=== PATIENT | male | born 1955 | race Caucasian/White ===

== ENCOUNTER 2017-03-31 04:25 | Emergency (ER) | payer OTHER ==
[2017-03-31] MEDS ORDERED: Ibuprofen 800 MG TAB ONE (05:31)
[2017-03-31] MEDS ORDERED: HYDROcodone/Acetaminophen 10/325 mg Tablet ONE (05:31)
--- NOTE | 2017-03-31 07:07 | RAD ---
RIGHT WRIST 3 VIEWS: Date: 03/31/17 Although the findings are subtle, there does appear to be an impacted fracture of the distal radius. There may be a fracture line extending into the radiocarpal joint. The carpal bones themselves all appeared intact. IMPRESSION: Presumed fracture of the distal radius. Follow-up study is indicated. There is no displacement. POS: HOME
== END 2017-03-31 05:51 | disposition home or self-care (01) ==
LOC: BURERS 04:25
DX: S52.571A Other intraarticular fracture of lower end of right radius, initial encounter for closed fracture (principal); E78.5 Hyperlipidemia, unspecified; I10 Essential (primary) hypertension; J44.9 Chronic obstructive pulmonary disease, unspecified; F20.9 Schizophrenia, unspecified; F17.210 Nicotine dependence, cigarettes, uncomplicated; Z79.899 Other long term (current) drug therapy; W19.XXXA Unspecified fall, initial encounter
CPT/HCPCS: 29125

== ENCOUNTER 2018-07-24 03:46 | Emergency (ER) | payer OTHER ==
[2018-07-24] MEDS ORDERED: Aspirin Chewable 81 MG TAB ONE ×2 (03:57→03:58)
[2018-07-24 04:31] LABS: Bilirubin Negative (Negative); Clarity Clear (Clear); Glucose, Urine (Dipstick) 100 mg/dL (Negative); Leukocyte Negative (Negative); Nitrite Negative (Negative); Protein, Urine (Dipstick) Negative (Neg-Trace); Specific Gravity, Urine 1.004 (1.002-1.036); Urobilinogen 0.2 mg/dL (0.2-1.0)
[2018-07-24 04:32] LABS: Blood, Urine Trace (Negative)
[2018-07-24 04:34] LABS: Bacteria/HPF None Seen HPF (None Seen); RBC/HPF 0-3 HPF (0-3); Squamous Epithelial 0-3 HPF (0-3); WBC/HPF None Seen HPF (0-3)
[2018-07-24 04:35] LABS: ALT (SGPT) 16 U/L (8-55); AST (SGOT) 17 U/L (5-34); Albumin 3.8 g/dL (3.4-4.8); Alkaline Phosphatase 58 U/L (40-150); Anion Gap 16 mmol/L (10-20); BUN (Urea Nitrogen) 13 mg/dL (8.4-25.7); Bilirubin, Total 0.5 mg/dL (0.2-1.2); Calc. Creatinine Clearance 0 mL/min (70-130); Calcium 9.5 mg/dL (7.8-10.44); Carbon Dioxide 22 mmol/L (23-31); Chloride 96 mmol/L (98-107); Estimated GFR-MDRD 72; Globulin 3.5 g/dL (2.4-3.5); Glucose 204 mg/dL (80-115); Potassium 3.6 mmol/L (3.5-5.1); Protein, Total 7.3 g/dL (5.8-8.1); Sodium 130 mmol/L (136-145)
[2018-07-24 04:37] LABS: #Basophils 0.1 thou/uL (0.0-0.2); #Lymphocytes 1.7 thou/uL (1.20-3.40); #Monocytes 0.7 thou/uL (0.11-0.59); #Neutrophils 8.2 thou/uL (1.40-6.50); %Basophils 0.7 % (0.0-1.0); %Eosinophils 0.4 % (0.0-10.0); %Lymphocytes 16.1 % (21.0-51.0); %Monocytes 6.8 % (0.0-10.0); %Neutrophils 76.1 % (42.0-75.0); Hemoglobin 12.8 g/dL (14.0-18.0); Mean Corpuscular HGB CONC 33.8 g/dL (32.0-36.0); Mean Corpuscular Hemoglobin 32.7 pg (27.0-31.0); Mean Corpuscular Volume 96.5 fL (78.0-98.0); Platelet Count 102 thou/uL (130-400); Platelet Morphology Comment Appears Decreased; RBC Distribution Width 12.9 % (11.5-14.5); RBC Morphology Normal; Red Blood Cell (RBC) Count 3.91 mill/uL (4.70-6.10); White Blood Cell (WBC) Count 10.7 thou/uL (4.8-10.8)
[2018-07-24] MEDS ORDERED: Albuterol Sulfate 1.25 MG/3 ML NEB ONE (04:48)
[2018-07-24] MEDS ORDERED: methylPREDNISolone Sod Succ/PF 125 MG/2 ML VIAL ONE (04:48)
[2018-07-24] MEDS ORDERED: Magnesium Sulfate 2 GM/100 ML BAG ONE (04:49)
[2018-07-24] MEDS ORDERED: cefTRIAXone\\ROCEPHIN 2 GM VIAL ONE (05:51)
--- NOTE | 2018-07-24 10:25 | RAD ---
PORTABLE CHEST: DATE: 07/24/2018. FINDINGS: An AP portable film at 0346 is compared with a 04/17/2010 study. The heart is not enlarged. The vasculature seems more prominent today than before. No large effusio ns are seen. No lobar consolidations were evident. IMPRESSION: Possible mild vascular congestion. POS: HOME
== END 2018-07-24 08:30 | disposition home or self-care (01) ==
LOC: BURERS 03:46
DX: J44.1 Chronic obstructive pulmonary disease with (acute) exacerbation (principal); E87.1 Hypo-osmolality and hyponatremia; C32.9 Malignant neoplasm of larynx, unspecified; E78.5 Hyperlipidemia, unspecified; I10 Essential (primary) hypertension; F41.9 Anxiety disorder, unspecified; F20.9 Schizophrenia, unspecified; F17.210 Nicotine dependence, cigarettes, uncomplicated; Z79.899 Other long term (current) drug therapy
CPT/HCPCS: 36415; 71045; 80053; 81003; 81015; 83880; 84484; 85025; 93005; 94640; 94760; 94799; 96365; 96375; J0696; J2930; J3475; J7620

== ENCOUNTER 2018-08-26 19:58 | Emergency (ER) | payer OTHER ==
[2018-08-26] MEDS ORDERED: Lidocaine 1% PF 5 ML VIAL ONE (20:15)
[2018-08-26] MEDS ORDERED: Amoxicillin/Potassium Clav 875 MG TAB ONE (20:22)
[2018-08-26] MEDS ORDERED: Adacel (T-DAP) 0.5 ML SYRINGE ONE (20:51)
== END 2018-08-26 21:13 | disposition home or self-care (01) ==
LOC: BURERS 19:58
DX: S81.852A Open bite, left lower leg, initial encounter (principal); I10 Essential (primary) hypertension; E78.5 Hyperlipidemia, unspecified; J44.9 Chronic obstructive pulmonary disease, unspecified; F41.9 Anxiety disorder, unspecified; F20.9 Schizophrenia, unspecified; F17.210 Nicotine dependence, cigarettes, uncomplicated; W54.0XXA Bitten by dog, initial encounter
CPT/HCPCS: 90715; 99283; J2001

== ENCOUNTER 2019-08-02 23:05 | Emergency (ER) | payer OTHER ==
[2019-08-02] MEDS ORDERED: HYDROmorphone 0.5 MG/0.5 ML SYRINGE ONE (23:56)
[2019-08-03] LABS: #Basophils 0.1 thou/uL (0.0-0.2); #Eosinphils 0.2 thou/uL (0.0-0.7); #Lymphocytes 0.7 thou/uL (1.20-3.40); #Monocytes 0.7 thou/uL (0.11-0.59); #Neutrophils 13.2 thou/uL (1.40-6.50); %Basophils 0.7 % (0.0-1.0); %Eosinophils 1.2 % (0.0-10.0); %Lymphocytes 4.9 % (21.0-51.0); %Monocytes 4.4 % (0.0-10.0); %Neutrophils 88.8 % (42.0-75.0); Hemoglobin 12.1 g/dL (14.0-18.0); Mean Corpuscular HGB CONC 32.3 g/dL (32.0-36.0); Mean Corpuscular Hemoglobin 31.6 pg (27.0-31.0); Mean Corpuscular Volume 97.8 fL (78.0-98.0); Platelet Count 145 thou/uL (130-400); RBC Distribution Width 14.3 % (11.5-14.5); Red Blood Cell (RBC) Count 3.83 mill/uL (4.70-6.10); White Blood Cell (WBC) Count 14.9 thou/uL (4.8-10.8)
[2019-08-03 00:02] LABS: Prothrombin Time 13.5 SEC (12.0-14.7)
[2019-08-03 00:13] LABS: ALT (SGPT) 12 U/L (8-55); AST (SGOT) 18 U/L (5-34); Albumin 3.6 g/dL (3.4-4.8); Alkaline Phosphatase 146 U/L (40-110); Anion Gap 15 mmol/L (10-20); BUN (Urea Nitrogen) 6 mg/dL (8.4-25.7); Bilirubin, Total 0.3 mg/dL (0.2-1.2); Calc. Creatinine Clearance 0 mL/min (70-130); Calcium 9.5 mg/dL (7.8-10.44); Carbon Dioxide 25 mmol/L (23-31); Chloride 97 mmol/L (98-107); Estimated GFR-MDRD Greater than 90; Globulin 4.3 g/dL (2.4-3.5); Glucose 105 mg/dL (80-115); Potassium 4.6 mmol/L (3.5-5.1); Protein, Total 7.9 g/dL (5.8-8.1); Sodium 132 mmol/L (136-145)
--- NOTE | 2019-08-03 08:04 | RAD ---
LEFT LEG 2 VIEWS: Date: 08/02/2019 A fracture of the proximal tibial shaft is present with posterior angulation of the proximal fragment . The fibular head/neck area may be fractured as well, but both of these fractures are at the edge of the film. Knee films would be more useful in better defining the injuries. The mid to distal portion of the tibia and fibula appeared intact. IMPRESSION: Angulated fracture of the proximal tibial shaft. Probable fracture of the proximal fibula. Films of t he upper tibia/knee would be helpful at seeing this better. CODE T. POS: HOME
== END 2019-08-03 03:30 ==
LOC: BURERS 23:05
DX: S82.222A Displaced transverse fracture of shaft of left tibia, initial encounter for closed fracture (principal); E78.5 Hyperlipidemia, unspecified; I10 Essential (primary) hypertension; J44.9 Chronic obstructive pulmonary disease, unspecified; G62.9 Polyneuropathy, unspecified; F41.9 Anxiety disorder, unspecified; F20.9 Schizophrenia, unspecified; Z79.899 Other long term (current) drug therapy; W18.30XA Fall on same level, unspecified, initial encounter
CPT/HCPCS: 29505; 36415; 80053; 85025; 85610; 96374; J1170